=== PATIENT | male | born 1985 | race Caucasian/White ===

== ENCOUNTER 2022-09-15 19:11 | Emergency (ER) | payer OTHER ==
[2022-09-15] MEDS ORDERED: Ketorolac 30 MG/ML SDV IVPUSH STA (20:01)
[2022-09-15 20:27] LABS: CORONAVIRUS COVID-19 NAA NEGATIVE (NEGATIVE)
== END 2022-09-15 21:05 | disposition home or self-care (01) ==
LOC: JD.ED 19:11
DX: R55 Syncope and collapse (principal); R51.9 Headache, unspecified; F41.9 Anxiety disorder, unspecified; E78.00 Pure hypercholesterolemia, unspecified; Z88.0 Allergy status to penicillin; Z86.16 Personal history of COVID-19; Z20.822 Contact with and (suspected) exposure to COVID-19
CPT/HCPCS: 0241U; 36415; 80053; 83735; 84484; 85025; 85379; 93005; 96374; 99284; J1885; 93010; 99285